=== PATIENT | male | born 1945 | race Caucasian/White ===

== ENCOUNTER 2017-10-23 16:06 | Inpatient (IN) | payer OTHER, MEDICARE ==
[~2017-10-23] VITALS: Ht 180.3 cm; Wt 86.2 kg
[~2017-10-23 16:06] MED LIST: ALLO100T PO; ALPRPOW PO; AMIO400T2 PO; AMOX875T20 PO; COUM5TAB PO; FERR324T4 PO; LISI-366 PO; LORTA5 PO; METO50 PO; NOVONP2 SQ; OMEP20TA OR; OXYC-360 PO; PRAV20 PO; REME30TA PO; REST7.5C PO; VIAG50TA PO; WARF2.5 PO
--- NOTE | 2017-10-23 16:32 | PD ---
HPI Chief Complaint: Psychiatric Symptoms Time Seen by Provider: 16:17 Travel History International Travel<30 days: No Contact w/Intl Traveler<30days: No Traveled to known affect area: No History of Present Illness HPI 72-year-old male presents to the emergency department under Andrade act. Per the law enforcement report the patient "appeared to be in poor physical hygiene. His residence was filled with garbage from 4 to ceiling and had water on the floor throughout." On examination the patient has no medical complaints. He denies suicidal or homicidal ideations. Denies visual or auditory hallucinations. Denies chest pain, shortness of breath, abdominal pain, vomiting, fevers. Denies recent illness. Denies illicit drug use, EtOH, tobacco use. Dr. Eckert is his primary care provider. Says he recently followed up with him and was treated with antibiotics for a toe infection which has resolved. No known relieving or aggravating factors. No known allergies. Has no medical complaints. No other modifying factors or associated signs and symptoms. 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) Psychiatric: No Reproductive: No Respiratory: No Immunizations Current: No Migraines: No Renal Failure: No Seizures: No Thyroid Disease: No Ulcer: Yes (Beginning of ulcer 4 years ago from endoscopy) Past Surgical History Abdominal Surgery: No Cardiac Surgery: No Ear Surgery: No Endocrine Surgery: No Eye Surgery: No Genitourinary Surgery: No Gynecologic Surgery: No Oral Surgery: No Thoracic Surgery: No Other Surgery: Yes Social History Alcohol Use: Yes (OCC) Tobacco Use: No Substance Use: No Allergies-Medications (Allergen,Severity, Reaction): Coded Allergies: No Known Allergies (Verified , 02/08/13) Reported Meds & Prescriptions Reported Meds & Active Scripts Active Reported Amiodarone Hcl (Amiodarone HCl) 400 Mg Tab 400 Mg PO DIRECTED Amoxicillin/Clavulanate P (Amoxicillin/Clavulanate Potassium) 875 Mg Tab 875 Mg PO BID Percocet (Oxycodone/Acetaminophen) 5 Mg/325 Mg Tab 1-2 Tab PO QID FOR PAIN Coumadin (Warfarin Sodium) 2.5 Mg Tab 2.5 Mg PO EVERY MWF-SUN Lisinopril 40 Mg Tab 40 Mg PO DAILY Restoril (Temazepam) 7.5 Mg Cap 4 Tabs PO HSPRN Ferrous Sulfate 325 Mg Tab 325 Mg PO DAILY Allopurinol 100 Mg Tab 100 Mg PO BID Lopressor 50 Mg Tab (Metoprolol Tartrate) 50 Mg Tab 25 Mg PO BID Alprostadil (Alprostadil (Bulk)) Pow 40 Mcg PO 60 MIN PRIOR TO SEXUAL ACTIVITY FOR ERECTILE DYSFUNCTION Viagra (Sildenafil Citrate) 50 Mg Tab 50 Mg PO WEEKLY NEEDED Remeron (Mirtazapine) 30 Mg Tab 30 Mg PO HS Lortab 5/325 Tab (Hydrocodone-Acetaminophen) 1 Tab Tab 1 Tab PO Q6HPRN FOR PAIN Pravachol 20 Mg Tab (Pravastatin Sodium) 20 Mg Tab 20 Mg PO HS Coumadin (Warfarin Sodium) 5 Mg Tab 5 Mg PO EVERY T-TH-SAT Novolin N (Insulin Human NPH) 100 Units/Ml Inj 25 Units SQ IN AM Novolin N (Insulin Human NPH) 100 Units/Ml Inj 15 Units SQ IN PM Omeprazole 20 Mg Tab 20 Mg OR BIDAC Review of Systems Except as stated in HPI: all other systems reviewed are Neg Physical Exam Narrative GENERAL: Well-nourished, well-developed male patient, in no acute distress; disheveled and with foul odor SKIN: Warm and dry. HEAD: Atraumatic. Normocephalic. EYES: Pupils equal and round. ENT: Mucosa pink and moist. NECK: Supple. Trachea midline. CARDIOVASCULAR: Regular rate and rhythm. No murmur appreciated. RESPIRATORY: No accessory muscle use. Clear to auscultation. Breath sounds equal bilaterally. GASTROINTESTINAL: Abdomen soft, non-tender, nondistended. Hepatic and splenic margins not palpable. Bowel sounds are active 4 quadrants. MUSCULOSKELETAL: No obvious deformities. No clubbing. No cyanosis. No edema. NEUROLOGICAL: Awake and alert. Oriented 3. No obvious cranial nerve deficits. Motor grossly within normal limits. Normal speech. Moves all extremities. 5/5 strength to all extremities. PSYCHIATRIC: No delusional thought processes. No hallucinations. Data Data Last Documented VS Vital Signs Date Time Temp Pulse Resp B/P (MAP) Pulse Ox O2 Delivery O2 Flow Rate FiO2 10/23/17 16:34 97.4 86 18 151/89 (109) 100 Room Air Orders Orders Complete Blood Count With Diff (10/23/17 16:18) Comprehensive Metabolic Panel (10/23/17 16:18) Psych Screen (10/23/17 16:18) Drug Screen, Random Urine (10/23/17 16:18) Alcohol (Ethanol) (10/23/17 16:18) Salicylates (Aspirin) (10/23/17 16:18) Tylenol (Acetaminophen) (10/23/17 16:18) Diet Regular Basic (10/23/17 Dinner) Labs Laboratory Tests Test 10/23/17 16:15 [facility] Medical Decision Making Medical Screen Exam Complete: Yes Emergency Medical Condition: Yes Medical Record Reviewed: Yes Differential Diagnosis Medical clearance for psychiatric evaluation, poor hygiene, medical clearance Narrative Course Patient presents under a Andrade act. Physical examination and vital signs are essentially unremarkable. Patient has no medical complaints to report. Psych screen has been ordered. If the laboratory results are unremarkable, the patient will be medically cleared for psychiatric evaluation and disposition. Diagnosis Primary Impression: Medical clearance for psychiatric admission Condition: Stable Deyanira Montano Oct 23, 2017 16:32
[2017-10-23 16:34] VITALS: BP 151/89; PULSE 86; RESP 18; TEMP 97.4; O2SAT 100
[2017-10-23 17:37] LABS: AUTOMATED NEUTROPHIL # 5.1 TH/MM3 (1.8-7.7); BASOPHIL # 0.1 TH/MM3 (0-0.2); BASOPHIL % 0.7 % (0.0-2.0); EOSINOPHIL # 0.4 TH/MM3 (0-0.4); EOSINOPHIL % 5.2 % (0.0-4.0); HEMATOCRIT 40.4 % (39.0-51.0); HEMOGLOBIN 13.8 GM/DL (13.0-17.0); LYMPH % 25.3 % (9.0-44.0); LYMPHOCYTE # 2.1 TH/MM3 (1.0-4.8); MEAN CELL VOLUME 84.8 FL (80.0-100.0); MEAN CORPUSCULAR HEMOGLOBIN 28.9 PG (27.0-34.0); MEAN CORPUSCULAR HGB CONC 34.1 % (32.0-36.0); MONO % 5.6 % (0.0-8.0); MONOCYTE # 0.5 TH/MM3 (0-0.9); NEUT % 63.2 % (16.0-70.0); PLATELET COUNT 295 TH/MM3 (150-450); RED BLOOD COUNT 4.76 MIL/MM3 (4.50-5.90); RED CELL DISTRIBUTION WIDTH 14.6 % (11.6-17.2); WHITE BLOOD COUNT 8.1 TH/MM3 (4.0-11.0)
[2017-10-23 18:03] LABS: ALBUMIN 3.7 GM/DL (3.4-5.0); ALKALINE PHOSPHATASE 117 U/L (45-117); ALT (GPT) 17 U/L (12-78); AST (GOT) 11 U/L (15-37); BICARBONATE 23.1 MEQ/L (21.0-32.0); BLOOD UREA NITROGEN 9 MG/DL (7-18); CALCIUM 8.8 MG/DL (8.5-10.1); CHLORIDE 106 MEQ/L (98-107); CREATININE 1.22 MG/DL (0.60-1.30); GLOMERULAR FILTRATION RATE 59 ML/MIN (>89); GLUCOSE,RANDOM 134 MG/DL (74-106); SODIUM (NA) 137 MEQ/L (136-145); TOTAL BILIRUBIN ADULT 0.4 MG/DL (0.2-1.0); TOTAL PROTEIN 7.6 GM/DL (6.4-8.2)
[2017-10-23 18:04] LABS: ACETAMINOPHEN LESS THAN 2.0 MCG/ML (10.0-30.0)
[2017-10-23 22:53] VITALS: BP 154/71; PULSE 75; RESP 17; O2SAT 96
[2017-10-24 06:18] VITALS: BP 166/77; PULSE 79; RESP 18; O2SAT 96
[2017-10-24] MEDS ORDERED: ACETAMINOPHEN 325 MG TAB PO ONE (07:15)
[2017-10-24] MEDS ORDERED: ASPIRIN 81 MG CHEW TAB CHEW ONE (07:15)
[2017-10-24] MEDS ORDERED: LORazepam 1 MG TAB PO PRN (11:00)
[2017-10-24] MEDS ORDERED: AMIODARONE HCL 400 MG PO SCH (11:00)
[2017-10-24] MEDS ORDERED: LORazepam 2 MG/ML VIAL IM PRN (11:00)
[2017-10-24] MEDS ORDERED: WARFARIN SOD 2.5 MG TAB PO SCH (11:00)
[2017-10-24] MEDS ORDERED: ALUMINUM/MAGNESIUM/SIMETH 30 ML CUP PO PRN (11:00)
[2017-10-24] MEDS ORDERED: MAGNESIUM HYDROXIDE SUSP 30 ML CUP PO PRN (11:00)
[2017-10-24] MEDS ORDERED: ACETAMINOPHEN 325 MG TAB PO PRN (11:00)
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
[2017-10-24 14:25] VITALS: BP 155/74; PULSE 76; RESP 18; TEMP 98.5; O2SAT 98
[2017-10-24] MEDS: PANTOPRAZOLE SOD 20 MG DELAYED RELEASE TAB PO SCH (16:00)
[2017-10-24] MEDS: INSULIN HUMAN NPH 1,000 UNITS/10 ML VIAL SQ SCH (16:00)
[2017-10-24 17:45] LABS: INTERNATIONAL NORMALIZED RATIO 1.1 RATIO; PROTHROMBIN TIME - PATIENT 11.4 SEC (9.8-11.6)
[2017-10-24] MEDS: ALLOPURINOL 100 MG TAB PO SCH (21:00)
[2017-10-24] MEDS: METOPROLOL TARTRATE 25 MG TAB PO SCH (21:00)
[2017-10-24] MEDS ORDERED: MIRTAZAPINE 15 MG TAB PO SCH (21:00)
[2017-10-24] MEDS: PRAVASTATIN SOD 20 MG TAB PO SCH (21:00)
[2017-10-25 06:12] VITALS: BP 123/59; PULSE 73; RESP 16; TEMP 98; O2SAT 98
[2017-10-25] MEDS: PANTOPRAZOLE SOD 20 MG DELAYED RELEASE TAB PO SCH ×2 (07:00→16:00)
[2017-10-25] MEDS: INSULIN HUMAN NPH 1,000 UNITS/10 ML VIAL SQ SCH ×2 (08:00→16:00)
[2017-10-25] MEDS: METOPROLOL TARTRATE 25 MG TAB PO SCH ×2 (09:00→21:00)
[2017-10-25] MEDS ORDERED: WARFARIN SOD 5 MG TAB PO SCH (09:00)
[2017-10-25] MEDS: LISINOPRIL 20 MG TAB PO SCH (09:00)
[2017-10-25] MEDS: FERROUS SULFATE 325 MG (65 MG ELEMENTAL IRON) TAB PO SCH (09:57)
[2017-10-25] MEDS: ALLOPURINOL 100 MG TAB PO SCH ×2 (09:57→21:29)
[2017-10-25 12:03] LABS: AUTOMATED NEUTROPHIL # 6.1 TH/MM3 (1.8-7.7); BASOPHIL % 0.6 % (0.0-2.0); EOSINOPHIL # 0.2 TH/MM3 (0-0.4); EOSINOPHIL % 2.4 % (0.0-4.0); HEMATOCRIT 39.6 % (39.0-51.0); HEMOGLOBIN 13.1 GM/DL (13.0-17.0); LYMPH % 11.9 % (9.0-44.0); LYMPHOCYTE # 0.9 TH/MM3 (1.0-4.8); MEAN CELL VOLUME 85.4 FL (80.0-100.0); MEAN CORPUSCULAR HEMOGLOBIN 28.2 PG (27.0-34.0); MEAN PLATELET VOLUME 7.8 FL (7.0-11.0); MONO % 5.7 % (0.0-8.0); MONOCYTE # 0.4 TH/MM3 (0-0.9); NEUT % 79.4 % (16.0-70.0); PLATELET COUNT 299 TH/MM3 (150-450); RED BLOOD COUNT 4.64 MIL/MM3 (4.50-5.90); RED CELL DISTRIBUTION WIDTH 14.8 % (11.6-17.2); WHITE BLOOD COUNT 7.7 TH/MM3 (4.0-11.0)
[2017-10-25 12:42] LABS: ALBUMIN 3.6 GM/DL (3.4-5.0); ALT (GPT) 15 U/L (12-78); AST (GOT) 5 U/L (15-37); BICARBONATE 25.8 MEQ/L (21.0-32.0); BLOOD UREA NITROGEN 18 MG/DL (7-18); CHLORIDE 102 MEQ/L (98-107); CHOLESTEROL 230 MG/DL (120-200); CREATININE 1.58 MG/DL (0.60-1.30); GLOMERULAR FILTRATION RATE 43 ML/MIN (>89); GLUCOSE,RANDOM 259 MG/DL (74-106); SODIUM (NA) 135 MEQ/L (136-145)
[2017-10-25 13:00] LABS: ALKALINE PHOSPHATASE 110 U/L (45-117); CHOLESTEROL/ HDL RATIO 3.98 RATIO; HDL CHOLESTEROL 57.7 MG/DL (40.0-60.0); LDL CHOLESTEROL 149 MG/DL (0-99); TOTAL BILIRUBIN ADULT 0.3 MG/DL (0.2-1.0); TOTAL PROTEIN 7.4 GM/DL (6.4-8.2); TRIGLYCERIDES 119 MG/DL (42-150)
--- NOTE | 2017-10-25 14:07 | HHI.PYPN ---
Subjective Remarks Patient initially seen by Dr. Morteza Hamilton who did the initial psychiatric evaluation. I have done the initial admitting psychiatric template orders. Patient seen in his room with nurse Vickie, is calm cooperative alert and oriented 4. However he he minimizes what the first responders noted of the condition of his house. He does acknowledge being a [place] that is seeing combat. He states he is single is never been , lives alone has no pets, he has no children but he has a younger brother who he states is a drug addict. He does denies suicidality homicidality voices or visions at this time. However at this time I feel there is enough information given by the patient that I feel may be somewhat delusional. We'll continue to observe for another 2448 hrs. Review of Systems Except as stated in HPI: all other systems reviewed are Neg Mental Status Examination Appearance: Appropriate, Disheveled Consciousness: Alert Orientation: Person, Place, Date/Time Motor Activity: Normal gait Speech: Hesitant Language: Adequate Fund of Knowledge: Adequate Attention and Concentration: Adequate Memory: Unremarkable Mood: Anxious Affect: Appropriate, Anxious Thought Process & Associations: Circumstantial Thought Content: Bizarre thinking Hallucination Type: None Delusion Type: None Suicidal Ideation: No Suicidal Plan: No Suicidal Intention: No Homicidal Ideation: No Homicidal Plan: No Homicidal Intention: No Insight: Fair Judgment: Poor Results Labs Test 10/24/17 17:10 10/25/17 11:23 Prothrombin Time 11.4 SEC Prothromb Time International Ratio 1.1 RATIO White Blood Count 7.7 TH/MM3 Red Blood Count 4.64 MIL/MM3 Hemoglobin 13.1 GM/DL Hematocrit 39.6 % Mean Corpuscular Volume 85.4 FL Mean Corpuscular Hemoglobin 28.2 PG Mean Corpuscular Hemoglobin Concent 33.0 % Red Cell Distribution Width 14.8 % Platelet Count 299 TH/MM3 Mean Platelet Volume 7.8 FL Neutrophils (%) (Auto) 79.4 % Lymphocytes (%) (Auto) 11.9 % Monocytes (%) (Auto) 5.7 % Eosinophils (%) (Auto) 2.4 % Basophils (%) (Auto) 0.6 % Neutrophils # (Auto) 6.1 TH/MM3 Lymphocytes # (Auto) 0.9 TH/MM3 Monocytes # (Auto) 0.4 TH/MM3 Eosinophils # (Auto) 0.2 TH/MM3 Basophils # (Auto) 0.0 TH/MM3 CBC Comment DIFF FINAL Differential Comment Blood Urea Nitrogen 18 MG/DL Creatinine 1.58 MG/DL Random Glucose 259 MG/DL Total Protein 7.4 GM/DL Albumin 3.6 GM/DL Calcium Level 9.0 MG/DL Alkaline Phosphatase 110 U/L Aspartate Amino Transf (AST/SGOT) 5 U/L Alanine Aminotransferase (ALT/SGPT) 15 U/L Total Bilirubin 0.3 MG/DL Sodium Level 135 MEQ/L Potassium Level 5.0 MEQ/L Chloride Level 102 MEQ/L Carbon Dioxide Level 25.8 MEQ/L Anion Gap 7 MEQ/L Estimat Glomerular Filtration Rate 43 ML/MIN Hemoglobin A1c 7.0 % Triglycerides Level 119 MG/DL Cholesterol Level 230 MG/DL LDL Cholesterol 149 MG/DL HDL Cholesterol 57.7 MG/DL Cholesterol/HDL Ratio 3.98 RATIO Vitamin B12 Level 384 PG/ML 25-Hydroxy Vitamin D Total 17.6 ng/ML Thyroid Stimulating Hormone 3rd Gen 2.480 uIU/ML Vitals/IOs Vital Signs Date Time Temp Pulse Resp B/P (MAP) Pulse Ox O2 Delivery O2 Flow Rate FiO2 10/25/17 06:12 98.0 73 16 123/59 (80) 98 10/24/17 06:18 Room Air Assessment & Plan Problem List: (1) Adjustment disorder with anxiety ICD Codes: F43.22 - Adjustment disorder with anxiety Assessment & Plan Estimated LOS: days patient overall calm cooperative and oriented. Though some of his statements may be construed as being somewhat delusional. We'll continue to observe without psychotropics another 24-48 hours Justification for Cont. Inpt. At this time patient may decompensate with placed in a lower level of care Discharge Planning Needs to be determined. Need to verify the live ability of his home Request HC Surrog/Guard Advoc?: No Francis Meza MD Oct 25, 2017 14:07
--- NOTE | 2017-10-25 14:45 | PD.TTN ---
Patient Problems 1. Discharge planning 2. Medication compliance 3. Knowledge deficit 4. Lack of coping skills Progress Toward Goals Provider Present: Dr. Warren Meza Provider Input: Dr. Meza's treatment team met to discuss patient's treatment plan, medication, and discharge. Patient is calm cooperative alert and oriented 4. Will begin treatment and access for the next 24 to 48 hours. Nurse(s) Input: Patient's nurse Vickie reports paient is pleasant denies suicidal ideation. Psychiatric Counselors Present: CHEYANNE AguirreBrandon Psych Therapist Input: Patient is new to this counselor. Will assess patient for treatment plan and goals Group Spec/RT/OT/CALDERON Present: YUMIKO Simpson Group Spec/RT/OT/CALDERON Input: Patient is new and has not been evaluated. Shaina AquinoBrandon Oct 25, 2017 14:45
[2017-10-25 18:57] VITALS: BP 142/67; PULSE 80; RESP 18; TEMP 98.7; O2SAT 100
[2017-10-25] MEDS: PRAVASTATIN SOD 20 MG TAB PO SCH (21:00)
[2017-10-26] MEDS: PANTOPRAZOLE SOD 20 MG DELAYED RELEASE TAB PO SCH ×2 (05:47→15:56)
[2017-10-26 05:55] VITALS: BP 131/60; PULSE 79; RESP 16; TEMP 98.4; O2SAT 98
[2017-10-26] MEDS: INSULIN HUMAN NPH 1,000 UNITS/10 ML VIAL SQ SCH ×2 (08:02→15:52)
[2017-10-26] MEDS: ALLOPURINOL 100 MG TAB PO SCH ×2 (08:37→21:34)
[2017-10-26] MEDS: FERROUS SULFATE 325 MG (65 MG ELEMENTAL IRON) TAB PO SCH (08:37)
[2017-10-26] MEDS: LISINOPRIL 20 MG TAB PO SCH (08:38)
[2017-10-26] MEDS: METOPROLOL TARTRATE 25 MG TAB PO SCH ×2 (08:38→21:34)
--- NOTE | 2017-10-26 13:55 | HHI.PR ---
Subjective Remarks Patient nad. No n/v/c. Had diarrhea in the morning. No fever or chills. Says he has been on antibiotic for foot infection recently finished course of antibiotic. Says he has diarrhea and takes immodium . Objective Vitals Vital Signs Date Time Temp Pulse Resp B/P (MAP) Pulse Ox O2 Delivery O2 Flow Rate FiO2 10/26/17 05:55 98.4 79 16 131/60 (83) 98 10/25/17 18:57 98.7 80 18 142/67 (92) 100 I/O 10/25/17 10/25/17 10/25/17 10/26/17 10/26/17 10/26/17 07:00 15:00 23:00 07:00 15:00 23:00 Intake Total 240 ml Balance 240 ml Intake Oral 240 ml Result Diagram: 10/25/17 1123 10/25/17 1123 Objective Remarks GENERAL: This is a well-nourished, well-developed patient, in no apparent distress. CARDIOVASCULAR: Regular rate and rhythm without murmurs, gallops, or rubs. RESPIRATORY: Clear to auscultation. Breath sounds equal bilaterally. No wheezes , rales, or rhonchi. GASTROINTESTINAL: Abdomen soft, non-tender, nondistended. No hepato-splenomegaly , or palpable masses. No guarding. MUSCULOSKELETAL: Extremities without clubbing, cyanosis, or edema. No joint tenderness, effusion, or edema noted. No calf tenderness. Negative Homans sign bilaterally. NEUROLOGICAL: Awake and alert. Cranial nerves II through XII intact. Motor and sensory grossly within normal limits. Five out of 5 muscle strength in all muscle groups. Normal speech. A/P Assessment and Plan 72-year-old male history of atrial fibrillation status post ablation now in sinus rhythm who presented with agitation due to adjustment disorder area [facility] consulted for medical management Adjustment disorder -Management per psychiatrist. Atrial fibrillation status post ablation -Per patient he is only on aspirin. He is not on Coumadin. 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 -Will discontinued Coumadin that was restarted by psychiatrists. -Will check an INR. Will have patient's nurse call his pharmacist to update his med rec. ELENA: Ct increased to 1.5/ Hold lisinopril. Encouraged PO hydration. Monitor VS. Hypertension -hold lisinopril as noted worsening in kidney function. Continue metoprolol. -We'll adjust as needed. Insulin dependent DM/ hyperlipidemia -Per patient he does not have any these diagnoses. Hemoglobin A1c is 7 Continue statin Continue home insulin. Monitor BS Vit D deficiency of 17. Start vit D supplement. Diarrhea: Check for C diff. Per patient has been taking recently augmentin for toe infection. Start probiotic, imodium DVT prophylaxis -encourage ambulation. Liliana Gutierrez MD Oct 26, 2017 13:55
--- NOTE | 2017-10-26 15:23 | HHI.PYPN ---
Subjective Remarks Patient seen in his room with floor staff, chart review, patient compliant medication. 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 Is also somewhat intrusive into other patient's business. He continues somewhat paranoid and guarded when referring to his brother also. For now will add Abilify 10 mg in the a.m. Review of Systems Except as stated in HPI: all other systems reviewed are Neg Mental Status Examination Appearance: Appropriate, Disheveled Consciousness: Alert Orientation: Person, Place, Date/Time Motor Activity: Normal gait Speech: Hesitant Language: Adequate Fund of Knowledge: Adequate Attention and Concentration: Adequate Memory: Unremarkable Mood: Anxious Affect: Appropriate, Anxious Thought Process & Associations: Circumstantial Thought Content: Bizarre thinking Hallucination Type: None Delusion Type: None Suicidal Ideation: No Suicidal Plan: No Suicidal Intention: No Homicidal Ideation: No Homicidal Plan: No Homicidal Intention: No Insight: Fair Judgment: Poor Results Vitals/IOs Vital Signs Date Time Temp Pulse Resp B/P (MAP) Pulse Ox O2 Delivery O2 Flow Rate FiO2 10/26/17 05:55 98.4 79 16 131/60 (83) 98 10/24/17 06:18 Room Air Assessment & Plan Problem List: (1) Adjustment disorder with anxiety ICD Codes: F43.22 - Adjustment disorder with anxiety Assessment & Plan Estimated LOS: days patient showing some increased signs of paranoia and psychotic flavor. Will add Abilify 10 mg a.m. to regimen Justification for Cont. Inpt. With this time patient decompensated placed in a lower level of care Discharge Planning We need to get further information about the status of patient's home before making recommendations Request HC Surrog/Guard Advoc?: No Francis Meza MD Oct 26, 2017 15:23
[2017-10-26] MEDS: LACTOBACILLUS ACIDOPHILUS TAB PO SCH (15:57)
[2017-10-26] MEDS ORDERED: ERGOCALCIFEROL (VIT D2) 50,000 UNIT CAP PO SCH (16:00)
[2017-10-26 18:04] VITALS: BP 174/78; PULSE 81; RESP 16; TEMP 98.7; O2SAT 98
[2017-10-26] MEDS: PRAVASTATIN SOD 20 MG TAB PO SCH (21:00)
[2017-10-26 21:30] VITALS: BP 165/79; PULSE 78; RESP 16; TEMP 98.2; O2SAT 99
[2017-10-27 05:35] VITALS: BP 125/61; PULSE 76; RESP 16; TEMP 98.3; O2SAT 98
[2017-10-27] MEDS: PANTOPRAZOLE SOD 20 MG DELAYED RELEASE TAB PO SCH ×2 (06:07→16:00)
[2017-10-27] MEDS: METOPROLOL TARTRATE 25 MG TAB PO SCH ×2 (09:00→22:07)
[2017-10-27] MEDS: ARIPiprazole 10 MG TAB PO SCH (09:00)
[2017-10-27] MEDS: LACTOBACILLUS ACIDOPHILUS TAB PO SCH ×3 (09:00→18:00)
[2017-10-27] MEDS: INSULIN HUMAN NPH 1,000 UNITS/10 ML VIAL SQ SCH (09:20)
[2017-10-27] MEDS: ALLOPURINOL 100 MG TAB PO SCH ×2 (10:16→22:07)
[2017-10-27] MEDS: FERROUS SULFATE 325 MG (65 MG ELEMENTAL IRON) TAB PO SCH (10:16)
[2017-10-27 10:21] LABS: AUTOMATED NEUTROPHIL # 6.8 TH/MM3 (1.8-7.7); BASOPHIL # 0.1 TH/MM3 (0-0.2); BASOPHIL % 0.8 % (0.0-2.0); EOSINOPHIL # 0.4 TH/MM3 (0-0.4); EOSINOPHIL % 3.9 % (0.0-4.0); HEMATOCRIT 37.7 % (39.0-51.0); HEMOGLOBIN 12.5 GM/DL (13.0-17.0); LYMPHOCYTE # 1.5 TH/MM3 (1.0-4.8); MEAN CELL VOLUME 85.5 FL (80.0-100.0); MEAN CORPUSCULAR HEMOGLOBIN 28.4 PG (27.0-34.0); MEAN CORPUSCULAR HGB CONC 33.3 % (32.0-36.0); MEAN PLATELET VOLUME 8.1 FL (7.0-11.0); MONO % 5.2 % (0.0-8.0); MONOCYTE # 0.5 TH/MM3 (0-0.9); NEUT % 74.1 % (16.0-70.0); PLATELET COUNT 274 TH/MM3 (150-450); RED BLOOD COUNT 4.41 MIL/MM3 (4.50-5.90); RED CELL DISTRIBUTION WIDTH 14.2 % (11.6-17.2); WHITE BLOOD COUNT 9.1 TH/MM3 (4.0-11.0)
[2017-10-27 10:53] LABS: BICARBONATE 25.8 MEQ/L (21.0-32.0); CALCIUM 9.1 MG/DL (8.5-10.1); CREATININE 1.43 MG/DL (0.60-1.30)
--- NOTE | 2017-10-27 12:16 | HHI.PYPN ---
Subjective Remarks Patient seen in his room with nurse Celia, chart reviewed, patient compliant medication. Patient continues somewhat minimizing the situation and his home, still stating that he has available positions in his home. However he also does acknowledge the water that is present in the home. The stomach feel patient does have capacity to sign voluntary. Thus I will allow the patient to sign voluntary today. He does have some insight into the difficulty with making any arrangements for possessions or living situation with a crisp suicidality weekend coming up. This time he is willing to stay on a voluntary basis first to continue adjusting his medications and to help him develop an appropriate discharge plan Review of Systems Except as stated in HPI: all other systems reviewed are Neg Mental Status Examination Appearance: Appropriate, Disheveled Consciousness: Alert Orientation: Person, Place, Date/Time Motor Activity: Normal gait Speech: Hesitant Language: Adequate Fund of Knowledge: Adequate Attention and Concentration: Adequate Memory: Unremarkable Mood: Anxious Affect: Appropriate, Anxious Thought Process & Associations: Circumstantial Thought Content: Bizarre thinking Hallucination Type: None Delusion Type: None Suicidal Ideation: No Suicidal Plan: No Suicidal Intention: No Homicidal Ideation: No Homicidal Plan: No Homicidal Intention: No Insight: Fair Judgment: Poor Results Labs Test 10/27/17 09:02 White Blood Count 9.1 TH/MM3 Red Blood Count 4.41 MIL/MM3 Hemoglobin 12.5 GM/DL Hematocrit 37.7 % Mean Corpuscular Volume 85.5 FL Mean Corpuscular Hemoglobin 28.4 PG Mean Corpuscular Hemoglobin Concent 33.3 % Red Cell Distribution Width 14.2 % Platelet Count 274 TH/MM3 Mean Platelet Volume 8.1 FL Neutrophils (%) (Auto) 74.1 % Lymphocytes (%) (Auto) 16.0 % Monocytes (%) (Auto) 5.2 % Eosinophils (%) (Auto) 3.9 % Basophils (%) (Auto) 0.8 % Neutrophils # (Auto) 6.8 TH/MM3 Lymphocytes # (Auto) 1.5 TH/MM3 Monocytes # (Auto) 0.5 TH/MM3 Eosinophils # (Auto) 0.4 TH/MM3 Basophils # (Auto) 0.1 TH/MM3 CBC Comment DIFF FINAL Differential Comment Blood Urea Nitrogen 30 MG/DL Creatinine 1.43 MG/DL Random Glucose 269 MG/DL Calcium Level 9.1 MG/DL Sodium Level 134 MEQ/L Potassium Level 5.4 MEQ/L Chloride Level 101 MEQ/L Carbon Dioxide Level 25.8 MEQ/L Anion Gap 7 MEQ/L Estimat Glomerular Filtration Rate 49 ML/MIN Vitals/IOs Vital Signs Date Time Temp Pulse Resp B/P (MAP) Pulse Ox O2 Delivery O2 Flow Rate FiO2 10/27/17 05:35 98.3 76 16 125/61 (82) 98 10/24/17 06:18 Room Air Intake and Output 10/27/17 10/27/17 10/28/17 08:00 16:00 00:00 Intake Total 240 ml 240 ml Balance 240 ml 240 ml Assessment & Plan Problem List: (1) Adjustment disorder with anxiety ICD Codes: F43.22 - Adjustment disorder with anxiety Assessment & Plan Estimated LOS: days patient now willing to sign voluntary. Has some insight in this needs workup an appropriate discharge plan with us. This sewing refuse [employer] delusional type ideation related to his possessions on the status of his home Justification for Cont. Inpt. At this time patient will decompensate the placed in a lower level of care Discharge Planning We need to verify patient's living situation Request HC Surrog/Guard Advoc?: No Francis Meza MD Oct 27, 2017 12:16
[2017-10-27] MEDS ORDERED: DEXTROSE 50% IN WATER 50 ML VIAL(D50) IV PUSH PRN (13:00)
[2017-10-27] MEDS ORDERED: GLUCAGON 1 MG/ML VIAL OTHER PRN (13:00)
[2017-10-27 15:40] VITALS: BP 125/60; PULSE 77; RESP 16; TEMP 98.3; O2SAT 99
[2017-10-27] MEDS: INSULIN ASPART SUPPLEMENTAL SCALE SQ SCH ×2 (16:40→21:00)
[2017-10-27] MEDS: PRAVASTATIN SOD 20 MG TAB PO SCH (21:00)
[2017-10-28 06:11] VITALS: BP 146/72; PULSE 66; RESP 17; TEMP 98.4; O2SAT 97
[2017-10-28] MEDS: PANTOPRAZOLE SOD 20 MG DELAYED RELEASE TAB PO SCH ×2 (06:11→16:00)
[2017-10-28] MEDS: INSULIN ASPART SUPPLEMENTAL SCALE SQ SCH ×4 (08:00→21:00)
[2017-10-28] MEDS: ARIPiprazole 10 MG TAB PO SCH (09:00)
[2017-10-28] MEDS: FERROUS SULFATE 325 MG (65 MG ELEMENTAL IRON) TAB PO SCH (09:44)
[2017-10-28] MEDS: LACTOBACILLUS ACIDOPHILUS TAB PO SCH ×3 (09:44→18:06)
[2017-10-28] MEDS: ALLOPURINOL 100 MG TAB PO SCH ×2 (09:44→21:04)
[2017-10-28] MEDS: METOPROLOL TARTRATE 25 MG TAB PO SCH ×2 (09:44→21:04)
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
[2017-10-28 13:50] LABS: BICARBONATE 23.5 MEQ/L (21.0-32.0); CALCIUM 8.9 MG/DL (8.5-10.1); CREATININE 1.42 MG/DL (0.60-1.30)
[2017-10-28] MEDS: INSULIN HUMAN NPH/R 70/30 1,000 UNITS/10 ML VIAL SQ SCH (17:00)
[2017-10-28 18:00] VITALS: BP 152/70; PULSE 65; RESP 17; TEMP 97.8; O2SAT 100
[2017-10-28] MEDS: PRAVASTATIN SOD 20 MG TAB PO SCH (21:04)
[2017-10-28] MEDS: LOPERAMIDE HCL 2 MG CAP PO PRN (22:55)
[2017-10-29 06:23] VITALS: BP 130/72; PULSE 98; RESP 16; TEMP 98.5; O2SAT 96
[2017-10-29] MEDS: PANTOPRAZOLE SOD 20 MG DELAYED RELEASE TAB PO SCH ×2 (06:29→16:00)
[2017-10-29] MEDS: INSULIN ASPART SUPPLEMENTAL SCALE SQ SCH ×4 (06:47→21:00)
[2017-10-29] MEDS: INSULIN HUMAN NPH/R 70/30 1,000 UNITS/10 ML VIAL SQ SCH ×2 (08:00→16:38)
[2017-10-29] MEDS: METOPROLOL TARTRATE 25 MG TAB PO SCH ×2 (08:58→21:16)
[2017-10-29] MEDS: FERROUS SULFATE 325 MG (65 MG ELEMENTAL IRON) TAB PO SCH (08:58)
[2017-10-29] MEDS: LACTOBACILLUS ACIDOPHILUS TAB PO SCH ×3 (08:58→18:13)
[2017-10-29] MEDS: ALLOPURINOL 100 MG TAB PO SCH ×2 (08:58→21:18)
[2017-10-29] MEDS: ARIPiprazole 10 MG TAB PO SCH (09:00)
--- NOTE | 2017-10-29 10:53 | HHI.PR ---
Subjective Remarks Follow up diarrhea, a fib, ELENA, DM. Patient seen and examined, sitting up in bed comfortably. Does admit to two bouts of diarrhea last evening. C diff checked and negative. Imodium has been prescribed, with some relief. Has been eating well. Denies any nausea or vomiting. Denies any chest pain. Spoke with RN with no acute complaints. VSS. Objective Vitals Vital Signs Date Time Temp Pulse Resp B/P (MAP) Pulse Ox O2 Delivery O2 Flow Rate FiO2 10/29/17 06:23 98.5 98 16 130/72 (91) 96 10/28/17 18:00 97.8 65 17 152/70 (97) 100 I/O 10/28/17 10/28/17 10/28/17 10/29/17 10/29/17 10/29/17 06:59 14:59 22:59 06:59 14:59 22:59 Intake Total 720 ml 240 ml Balance 720 ml 240 ml Intake Oral 720 ml 240 ml Result Diagram: 10/27/17 0902 10/28/17 1250 Objective Remarks GENERAL: This is a well-nourished, well-developed patient, in no apparent distress. CARDIOVASCULAR: Regular rate and rhythm without murmurs, gallops, or rubs. RESPIRATORY: Clear to auscultation. Breath sounds equal bilaterally. No wheezes , rales, or rhonchi. GASTROINTESTINAL: Abdomen soft, non-tender, nondistended. No hepato-splenomegaly , or palpable masses. No guarding. MUSCULOSKELETAL: Extremities without clubbing, cyanosis, or edema. No joint tenderness, effusion, or edema noted. No calf tenderness. Negative Homans sign bilaterally. NEUROLOGICAL: Awake and alert. Cranial nerves II through XII intact. Motor and sensory grossly within normal limits. Five out of 5 muscle strength in all muscle groups. Normal speech. A/P Assessment and Plan 72-year-old male history of atrial fibrillation status post ablation now in sinus rhythm who presented with agitation due to adjustment disorder area [facility] consulted for medical management Adjustment disorder -Management per psychiatrist. Atrial fibrillation status post ablation - Per patient he is only on aspirin. He is not on Coumadin. 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 - Will discontinued Coumadin that was restarted by psychiatrists. - INR 1.1. Requested that RN update medication rec. ELENA: Ct increased to 1.5/ Hold lisinopril. Encouraged PO hydration. Monitor VS. Hypertension - hold lisinopril as noted worsening in kidney function. Continue metoprolol. - BP controlled. - Continue to monitor BMP. Insulin dependent DM/ hyperlipidemia -Per patient he does not have any these diagnoses. Hemoglobin A1c is 7 - Continue statin - Continue home insulin with hold parameters. Monitor BS Vit D deficiency of 17. Started on vit D supplement. Diarrhea: C diff negative. Per patient has been taking recently Augmentin for toe infection. Continue probiotic, Imodium DVT prophylaxis -encourage ambulation. Yolanda Gill Oct 29, 2017 10:53
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
[2017-10-29 18:04] VITALS: BP 155/74; PULSE 80; RESP 16; TEMP 98.2; O2SAT 100
[2017-10-29] MEDS: ACETAMINOPHEN/HYDROcodone 325 MG/5 MG TAB PO PRN (21:17)
[2017-10-29] MEDS: PRAVASTATIN SOD 20 MG TAB PO SCH (21:18)
[2017-10-30 05:35] VITALS: BP 129/67; PULSE 76; RESP 18; TEMP 97.5; O2SAT 97
[2017-10-30] MEDS: PANTOPRAZOLE SOD 20 MG DELAYED RELEASE TAB PO SCH ×2 (06:21→16:00)
[2017-10-30] MEDS: INSULIN HUMAN NPH/R 70/30 1,000 UNITS/10 ML VIAL SQ SCH ×2 (08:00→17:00)
[2017-10-30] MEDS: INSULIN ASPART SUPPLEMENTAL SCALE SQ SCH ×4 (08:00→21:32)
[2017-10-30] MEDS: ARIPiprazole 10 MG TAB PO SCH (09:00)
[2017-10-30 09:03] LABS: BICARBONATE 25.2 MEQ/L (21.0-32.0); CALCIUM 8.8 MG/DL (8.5-10.1); CREATININE 1.22 MG/DL (0.60-1.30)
[2017-10-30] MEDS: LACTOBACILLUS ACIDOPHILUS TAB PO SCH ×3 (09:28→18:00)
[2017-10-30] MEDS: ALLOPURINOL 100 MG TAB PO SCH ×2 (09:28→21:32)
[2017-10-30] MEDS: METOPROLOL TARTRATE 25 MG TAB PO SCH ×2 (09:28→21:32)
[2017-10-30] MEDS: FERROUS SULFATE 325 MG (65 MG ELEMENTAL IRON) TAB PO SCH (09:28)
--- NOTE | 2017-10-30 11:34 | HHI.PR ---
Subjective Remarks Follow up for diarrhea, afib, ELENA, DM. The patient complains of his meals today , states he ordered more food than what he received and he keeps getting regular sugar when he asks for splenda. Otherwise, he reports doing better today. Diarrhea resolved, now reports solid stools. Discussed his elevated blood glucose, he states he had some peanut butter last night. He believes he was previously on Novolin 15u in am and 5u in pm. He also reports chronic bilateral shoulder pain. He has no other medical complaints at this time. Discussed with RN. Objective Vitals Vital Signs Date Time Temp Pulse Resp B/P (MAP) Pulse Ox O2 Delivery O2 Flow Rate FiO2 10/30/17 05:35 97.5 76 18 129/67 (87) 97 10/29/17 18:04 98.2 80 16 155/74 (101) 100 I/O 10/29/17 10/29/17 10/29/17 10/30/17 10/30/17 10/30/17 07:00 15:00 23:00 07:00 15:00 23:00 Intake Total 1440 ml Balance 1440 ml Intake Oral 1440 ml # Voids 2 Result Diagram: 10/27/17 0902 10/30/17 0810 Objective Remarks GENERAL: Well-nourished, well-developed pleasant elderly male patient in [facility]. SKIN: Warm and dry. No rash. HEENT: Normocephalic. Atraumatic. Pupils equal and round. Mucous membranes pink and moist. NECK: Supple. Trachea midline. CARDIOVASCULAR: Regular rate and rhythm. S1, S2 noted. No murmur appreciated. RESPIRATORY: No accessory muscle use. Clear to auscultation. Breath sounds equal bilaterally. GASTROINTESTINAL: Abdomen soft, non-tender, nondistended. Normoactive bowel sounds x4. MUSCULOSKELETAL: No obvious deformities. Extremities without clubbing, cyanosis , or edema. NEUROLOGICAL: Awake and alert. No obvious cranial nerve deficits. Motor grossly within normal limits. Normal speech. Medications and IVs Current Medications Medications (Trade) Dose Ordered Sig/Saw Route Start Time Stop Time Status Last Admin (Ativan) 1 mg Q6H PRN PO 10/24/17 11:00 Future Hold (Ativan Inj) 1 mg Q6H PRN IM 10/24/17 11:00 Future Hold (Tylenol) 650 mg Q4H PRN PO 10/24/17 11:00 (Milk Of Magnesia Liq) 30 ml DAILY PRN PO 10/24/17 11:00 (Mag-Al Plus Susp Liq) 30 ml Q6H PRN PO 10/24/17 11:00 (Zyloprim) 100 mg BID PO 10/24/17 21:00 10/30/17 09:28 ([place] 5-325 Mg) 1 tab Q8HR WHILE AWAKE NEB PRN PO 10/24/17 11:00 10/29/17 21:17 (Lopressor) 25 mg BID PO 10/24/17 21:00 10/30/17 09:28 (Remeron) 30 mg HS PO 10/24/17 21:00 Future Hold (Pravachol) 20 mg HS PO 10/24/17 21:00 10/29/17 21:18 (Ferrous Sulfate) 325 mg DAILY PO 10/25/17 09:00 10/30/17 09:28 (Prinivil) 40 mg DAILY PO 10/25/17 09:00 Future Hold (Protonix) 20 mg BIDAC PO 10/24/17 16:00 10/30/17 06:21 (Drisdol) 50,000 units Q7D PO 10/26/17 16:00 10/26/17 15:56 (Lactinex) 1 tab TID PO 10/26/17 18:00 10/30/17 09:28 (Imodium) 2 mg Q4H PRN PO 10/26/17 15:30 10/28/17 22:55 (Abilify) 10 mg DAILY PO 10/27/17 09:00 (D50w (Vial) Inj) 50 ml UNSCH PRN IV PUSH 10/27/17 13:00 (Glucagon Inj) 1 mg UNSCH PRN OTHER 10/27/17 13:00 (NovoLOG SUPPLEMENTAL SCALE) 1 ACHS SLIDING SCALE SQ 10/27/17 17:00 10/30/17 08:00 (NovoLIN 70/30 INJ) 7 units DAILY@0800 SQ 10/31/17 08:00 (NovoLIN 70/30 INJ) 5 units DAILY@17 SQ 10/30/17 17:00 A/P Assessment and Plan 72-year-old male history of atrial fibrillation status post ablation now in sinus rhythm who presented with agitation due to adjustment disorder area [facility] consulted for medical management Adjustment disorder -Management per psychiatrist. Atrial fibrillation status post ablation - Per patient he is only on aspirin. He is not on Coumadin. 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 - Will discontinue Coumadin that was restarted by psychiatry team - INR 1.1. Requested that RN update medication rec. - continue aspirin ELENA: Cr increased to 1.5. Encouraged PO hydration. Monitor VS. - hold lisinopril with worsening kidney function. - Encouraged oral hydration - renal function improving, BMP today with Cr 1.22 - continue to monitor Hypertension/Hyperlipidemia: -lisinopril on hold as above due to ELENA -continue patient's metoprolol and statin -BP fairly well controlled, continue to monitor Insulin dependent DM - Per patient he does not have any these diagnoses. Hemoglobin A1c is 7 - Continue home insulin with hold parameters. Monitor BS - BG continues to be elevated, will increase Novolin 70/30 to 7u in am, and continue 5u in pm Vit D deficiency of 17. -Started on vit D supplement. Diarrhea: C diff negative. Per patient has been taking recently Augmentin for toe infection. -Continue probiotic, Imodium -symptoms resolved DVT prophylaxis -encourage ambulation. Tracy Bolden PA-C Oct 30, 2017 11:34 am
[2017-10-30] MEDS: ASPIRIN EC 81 MG TABEC PO SCH (11:45)
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
[2017-10-30 18:00] VITALS: BP 141/65; PULSE 74; RESP 18; TEMP 98.8; O2SAT 100
[2017-10-30] MEDS: PRAVASTATIN SOD 20 MG TAB PO SCH (21:31)
[2017-10-30] MEDS: LOPERAMIDE HCL 2 MG CAP PO PRN (21:32)
[2017-10-31] MEDS: LOPERAMIDE HCL 2 MG CAP PO PRN (02:34)
[2017-10-31 05:59] VITALS: BP 130/62; PULSE 77; RESP 18; TEMP 98; O2SAT 98
[2017-10-31] MEDS: PANTOPRAZOLE SOD 20 MG DELAYED RELEASE TAB PO SCH ×2 (06:25→16:08)
[2017-10-31] MEDS: INSULIN ASPART SUPPLEMENTAL SCALE SQ SCH ×4 (08:00→21:24)
[2017-10-31] MEDS ORDERED: INSULIN HUMAN NPH/R 70/30 1,000 UNITS/10 ML VIAL SQ SCH (08:00)
[2017-10-31] MEDS: METOPROLOL TARTRATE 25 MG TAB PO SCH ×2 (08:58→21:18)
[2017-10-31] MEDS: ASPIRIN EC 81 MG TABEC PO SCH (08:58)
[2017-10-31] MEDS: FERROUS SULFATE 325 MG (65 MG ELEMENTAL IRON) TAB PO SCH (08:58)
[2017-10-31] MEDS: ARIPiprazole 10 MG TAB PO SCH ×2 (08:59→09:00)
[2017-10-31] MEDS: LACTOBACILLUS ACIDOPHILUS TAB PO SCH ×3 (08:59→17:06)
[2017-10-31] MEDS: ALLOPURINOL 100 MG TAB PO SCH ×2 (09:00→21:18)
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
--- NOTE | 2017-10-31 13:31 | HHI.PYPN ---
Subjective Remarks Patient seen in his room with nurse Acosta, chart review, patient compliant medication. Patient complain of having some diarrhea overnight. It was tested and is not C. difficile. We continue to work with finding patient a safe legitimately to get into his home. Counselor his put a phone call into patient' s landlord to see if he may be of assistance. Otherwise patient is calm cooperative denying suicidality homicidality voices or visions. Review of Systems Except as stated in HPI: all other systems reviewed are Neg Mental Status Examination Appearance: Appropriate, Disheveled Consciousness: Alert Orientation: Person, Place, Date/Time Motor Activity: Normal gait Speech: Hesitant Language: Adequate Fund of Knowledge: Adequate Attention and Concentration: Adequate Memory: Unremarkable Mood: Oppositional, Anxious Affect: Irritable Thought Process & Associations: Circumstantial Thought Content: Bizarre thinking Hallucination Type: None Delusion Type: None Suicidal Ideation: No Suicidal Plan: No Suicidal Intention: No Homicidal Ideation: No Homicidal Plan: No Homicidal Intention: No Insight: Poor Judgment: Poor Results Labs Test 10/31/17 00:20 Stool C. difficile Toxin (PCR) NEGATIVE Stl C. difficile Toxin Epiderm 027 PRESUMPTIVE NEGATIVE Vitals/IOs Vital Signs Date Time Temp Pulse Resp B/P (MAP) Pulse Ox O2 Delivery O2 Flow Rate FiO2 10/31/17 05:59 98.0 77 18 130/62 (84) 98 Intake and Output 10/31/17 10/31/17 11/01/17 08:00 16:00 00:00 Intake Total 240 ml Balance 240 ml Assessment & Plan Problem List: (1) Adjustment disorder with anxiety ICD Codes: F43.22 - Adjustment disorder with anxiety Assessment & Plan Estimated LOS: days patient coping with the some bowel irritation, also cooperative delays in discharge related to access to his home Justification for Cont. Inpt. This time patient will decompensate if not placed in an appropriate level of care Discharge Planning Awaiting word from patient's landlord to see if he can facilitate patient returning to his home Request HC Surrog/Guard Advoc?: Francis Hwang MD Oct 31, 2017 13:31
[2017-10-31] MEDS: INSULIN HUMAN NPH/R 70/30 1,000 UNITS/10 ML VIAL SQ SCH (17:06)
[2017-10-31 18:00] VITALS: BP 174/85; PULSE 94; RESP 18; TEMP 97.3; O2SAT 100
[2017-10-31] MEDS: PRAVASTATIN SOD 20 MG TAB PO SCH (21:18)
[2017-10-31] MEDS: ACETAMINOPHEN/HYDROcodone 325 MG/5 MG TAB PO PRN (22:26)
[2017-11-01 05:59] VITALS: BP 122/60; PULSE 66; RESP 17; TEMP 98.1; O2SAT 98
[2017-11-01] MEDS: PANTOPRAZOLE SOD 20 MG DELAYED RELEASE TAB PO SCH (06:07)
[2017-11-01] MEDS ORDERED: INSULIN HUMAN NPH/R 70/30 1,000 UNITS/10 ML VIAL SQ SCH (08:00)
[2017-11-01] MEDS: INSULIN ASPART SUPPLEMENTAL SCALE SQ SCH ×2 (08:00→11:28)
[2017-11-01] MEDS: ARIPiprazole 10 MG TAB PO SCH ×2 (08:45→09:00)
[2017-11-01] MEDS: METOPROLOL TARTRATE 25 MG TAB PO SCH (08:45)
[2017-11-01] MEDS: ASPIRIN EC 81 MG TABEC PO SCH (08:45)
[2017-11-01] MEDS: ALLOPURINOL 100 MG TAB PO SCH (08:46)
[2017-11-01] MEDS: LACTOBACILLUS ACIDOPHILUS TAB PO SCH (08:46)
[2017-11-01] MEDS: FERROUS SULFATE 325 MG (65 MG ELEMENTAL IRON) TAB PO SCH (08:46)
[2017-11-01] MEDS ORDERED: REME30TA PO (12:11)
[2017-11-01] MEDS ORDERED: ECASA81 PO (12:11)
[2017-11-01] MEDS ORDERED: METO25TA3 PO (12:11)
[2017-11-01] MEDS ORDERED: ALLO100 PO (12:11)
[2017-11-01] MEDS ORDERED: ARIP1TAB12 PO (12:11)
[2017-11-01] MEDS ORDERED: LISI-515 PO (12:11)
[2017-11-01] MEDS ORDERED: LACT PO (12:11)
[2017-11-01] MEDS ORDERED: FERR325T20 PO (12:11)
[2017-11-01] MEDS ORDERED: NOVO7030P2 SQ ×2 (12:11)
[2017-11-01] MEDS ORDERED: VITA500012 PO (12:11)
[2017-11-01] MEDS ORDERED: PRAV20TA PO (12:11)
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
== END 2017-11-01 12:45 | disposition home or self-care (01) | DRG 882 ==
LOC: NEPJ 16:06 → NEDA 10-24 10:47 → H260 10-24 13:00
PROVIDERS: ADMIT Psychiatry & Neurology Psychiatry; ATTEND Psychiatry & Neurology Psychiatry
DX: F43.22 Adjustment disorder with anxiety (principal); N17.9 Acute kidney failure, unspecified; E11.40 Type 2 diabetes mellitus with diabetic neuropathy, unspecified; Z79.4 Long term (current) use of insulin; I10 Essential (primary) hypertension; E78.5 Hyperlipidemia, unspecified; Z79.82 Long term (current) use of aspirin; E55.9 Vitamin D deficiency, unspecified; R19.7 Diarrhea, unspecified
CPT/HCPCS: 80048; 80053; 80061; 80307; 82306; 82607; 82948; 83036; 84443; 85025; 85610; 87493; 99285; J1815